=== PATIENT | male | born 1965 | race Caucasian/White ===

== ENCOUNTER 2020-07-31 08:32 | Outpatient (CLI) | payer OTHER, SELFPAY ==
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
== END 2020-07-31 08:33 | disposition home or self-care (01) ==
LOC: ANHCSM 08:33
PROVIDERS: Visit Provider Internal Medicine Critical Care Medicine
DX: G47.10 Hypersomnia, unspecified (principal); G47.33 Obstructive sleep apnea (adult) (pediatric)
CPT/HCPCS: 95806

== ENCOUNTER 2020-10-23 01:49 | Outpatient (CLI) | payer OTHER, SELFPAY ==
[2020-10-23 18:53] LABS: SARS-CoV-2 RNA PCR Negative
== END 2020-10-23 01:50 | disposition home or self-care (01) ==
LOC: ANHCOVIDDT 01:49
PROVIDERS: Visit Provider Internal Medicine Critical Care Medicine
DX: Z20.828 Contact with and (suspected) exposure to other viral communicable diseases (principal)
CPT/HCPCS: 87635; C9803; U0003

== ENCOUNTER 2020-10-25 08:30 | Outpatient (CLI) | payer OTHER, SELFPAY ==
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
[2020-12-11 10:25] VITALS: BMI 27.8
== END 2020-10-25 08:31 | disposition home or self-care (01) ==
LOC: ANHCSM 08:31
PROVIDERS: Visit Provider Internal Medicine Critical Care Medicine
DX: G47.33 Obstructive sleep apnea (adult) (pediatric) (principal)
CPT/HCPCS: 95811

== ENCOUNTER 2020-11-27 06:54 | Outpatient (NON) | payer OTHER, SELFPAY ==
[2020-11-27 19:06] LABS: SARS-CoV-2 RNA PCR Negative
== END 2020-11-27 06:55 ==
DX: Z20.822 Contact with and (suspected) exposure to COVID-19 (principal); R09.89 Other specified symptoms and signs involving the circulatory and respiratory systems
CPT/HCPCS: C9803; U0003

== ENCOUNTER → 2020-11-29 07:49 | Outpatient (CLI) | payer OTHER, SELFPAY ==
--- NOTE | ~2020-11-29 | MMUS_ITS ---
EXAMINATION: MM diagnostic mammo unilat LT, US breast LT complete HISTORY: Palpable left breast abnormality TECHNIQUE: Additional 3-D tomosynthesis images of the left breast were performed and synthetic 2-D im ages were generated. CAD analysis was submitted and interpreted. High resolution left breast ultrasou nd was performed. COMPARISON: No prior studies for comparison. BREAST PARENCHYMAL COMPOSITION: Breast composed of scattered areas of fibroglandular density. FINDINGS: MAMMOGRAPHIC FINDINGS: There is bilateral symmetric gynecomastia. Scattered benign bilateral breast calcifications. No suspi cious masses in the area of palpable concern superiorly in the left breast. ULTRASOUND: Limited left breast ultrasound: At 12:00, 3 cm from the nipple there is an oval hyperechoic mass kvng uring 1.4 x 1.3 x 0.7 cm, compatible with a benign lipoma. No posterior features or internal vascular ity. IMPRESSION: 1. No evidence for malignancy. Benign lipoma in the area of palpable concern. 2. Bilateral symmetric gynecomastia. BI-RADS Category 0: Incomplete: Needs additional imaging evaluation. Reviewed, dictated and finalized at location A. [employer] OPERATIONS MANAGER IMPRESSION: 1. No evidence for malignancy. Benign lipoma in the area of palpable concern. 2. Bilateral symmetric gynecomastia. BI-RADS Category 0: Incomplete: Needs additional imaging evaluation.
== END ==
PROVIDERS: PCP Family Medicine; Visit Provider Family Medicine
DX: N63.20 Unspecified lump in the left breast, unspecified quadrant (principal)
CPT/HCPCS: 76641; 77065

== ENCOUNTER 2025-05-14 07:57 | Outpatient (CLI) | payer OTHER, SELFPAY ==
--- NOTE | ~2025-05-14 | CT_ITS ---
CT of the Abdomen and Pelvis: Indication: Abdominal pain Technique: 2.5 mm axial scans were obtained through the abdomen and pelvis following intravenous adm inistration of 100 cc of Omnipaque 350. Dose reduction technique was used on this scan by utilizing a utomated exposure control and iterative reconstruction technique. The dose-length product (DLP) was 5 77.37 mGy-cm. Findings: Scans through the lung bases are unremarkable. The liver, spleen, pancreas, gallbladder, and adrenal glands are within normal limits. Probable bilat eral parapelvic renal cysts present hydronephrosis. No evidence of aortic aneurysm. No lymphadenopat hy. No bowel obstruction or bowel wall thickening. Small to moderate fat-containing umbilical hernia pres ent. Appendix minimally prominent at 8 mm in diameter, but no associated inflammatory change identifi ed. Images through the pelvis were performed. Urinary bladder unremarkable. No pelvic mass seen. Ascites. Impression: Mildly prominent appendix without inflammatory change. Correlate for very early acute appendicitis. Small to moderate fat-containing umbilical hernia. Bilateral parapelvic renal cysts. Reviewed, dictated and finalized at [facility]. Impression: Mildly prominent appendix without inflammatory change. Correlate for very early acute appendicitis. Small to moderate fat-containing umbilical hernia. Bilateral parapelvic renal cysts.
[2025-05-14 08:32] LABS: Estimated Glomerular Filt Rate > 60
== END 2025-05-14 07:58 | disposition home or self-care (01) ==
PROVIDERS: PCP Family Medicine; Visit Provider Family Medicine
DX: K38.0 Hyperplasia of appendix (principal); K42.9 Umbilical hernia without obstruction or gangrene; N28.1 Cyst of kidney, acquired
CPT/HCPCS: 74177; Q9967